=== PATIENT | female | born 1985 | race Caucasian/White ===

== ENCOUNTER → 2020-06-11 08:28 | Outpatient (BNVA) | payer BC, SELFPAY | PROVIDERS: Family Provider Registered Nurse; PCP Nurse Practitioner Family; Visit Provider Registered Nurse | DX: N92.6 Irregular menstruation, unspecified (principal); I10 Essential (primary) hypertension; R53.83 Other fatigue | CPT/HCPCS: 80053; 84439; 84443; 84480; 84702; 86376 ==

== ENCOUNTER → 2020-09-24 10:52 | Outpatient (BNVA) | payer SELFPAY | PROVIDERS: Family Provider Registered Nurse; PCP Nurse Practitioner Family; Visit Provider Registered Nurse | DX: N92.6 Irregular menstruation, unspecified (principal) | CPT/HCPCS: 84702 ==

== ENCOUNTER → 2021-03-11 10:54 | Outpatient (BNVA) | payer SELFPAY | PROVIDERS: Family Provider Registered Nurse; PCP Nurse Practitioner Family; Visit Provider Registered Nurse | DX: N92.6 Irregular menstruation, unspecified (principal) | CPT/HCPCS: 82607; 85025 ==

== ENCOUNTER → 2021-03-21 14:26 | Outpatient (BNVA) | payer BC, SELFPAY | PROVIDERS: Family Provider Registered Nurse; PCP Nurse Practitioner Family; Visit Provider Obstetrics & Gynecology | DX: N93.9 Abnormal uterine and vaginal bleeding, unspecified (principal) | CPT/HCPCS: 83001; 84443; 84702; 85025 ==

== ENCOUNTER → 2021-03-28 10:32 | Outpatient (BNVA) | payer BC, SELFPAY | PROVIDERS: Family Provider Registered Nurse; PCP Nurse Practitioner Family; Visit Provider Registered Nurse | DX: Z20.822 Contact with and (suspected) exposure to COVID-19 (principal); N92.1 Excessive and frequent menstruation with irregular cycle | CPT/HCPCS: 81000; 87635 ==

== ENCOUNTER 2021-04-04 09:41 | Emergency (ER) | payer BC, SELFPAY ==
[2021-04-04] VITALS (8 sets, daily range): BP systolic 88–111; BP diastolic 56–71; PULSE 78–89; RESP 18–20; TEMP 37.2–37.5; O2SAT 91–93; BMI 29.0
--- NOTE | 2021-04-04 10:52 | CT_ITS ---
WS: [id number] CT kidney stone [id number] REASON FOR EXAM: right flank pain, hx of stones, covid +, ovarian cyst IV CONTRAST ADMINISTERED: Noncontrast TOTAL EXAM DLP: 1775.[address] scans at [facility] use at least one of these dose optimization techniques: automat ed exposure control; mA and/or kV adjustment per patient size (includes targeted exams where dose is matched to clinical indication); or iterative reconstruction. FINDINGS: ABDOMEN: There is extensive consolidation in the lung bases. The liver appears fatty infiltrated. The gallbladder has been surgically removed. The pancreas and sp farrah are unremarkable. The adrenals are unremarkable. The kidneys are of normal size and contour and without mass. 2 mm calculus in the mid left kidney. No calculi overlying the abdominal portion of the ureters. No abdominal mass, adenopathy, focal fluid collection, or free fluid. No bowel abnormality. Pelvis: No calculus overlying the pelvic ureters. No calculus identified within the urinary bladder. 8.3 x 5.8 cm right ovarian cyst. There is an additional 3.7 cm in diameter mass in the right ovary an d 2 cm mass in the left ovary that are more complex in character. No other mass, adenopathy, focal fluid collection, or free fluid noted. The bony pelvis and lumbar sp ine are unremarkable. CT/CT kidney stone [id number] IMPRESSION: Consolidative changes in the lung bases. Solitary 2 mm calculus in the left kidney. Large right ovarian cyst. Likely involuting follicular cysts in the right kidney and left kidney. After p atient recovery, follow-up ultrasound would be reasonable.
--- NOTE | 2021-04-04 10:53 | W.ED.COVID ---
HPI - COVID General: Chief Complaint: COVID symptoms Stated Complaint: SOB, Covid + Time Seen by Provider: 04/04/21 10:46 Triage information: Has fever, cough or shortness of breath. Exposure to COVID + person last 14 days History of Present Illness: HPI Narrative: Patient Covid positive patient. Does have aches and pains all over. Complains about right flank pain burning with urination. History also ovarian cyst. Pain started last night. Did have some urinary symptoms last week UA was negative at office MD complaint: known COVID positive Prior covid testing: yes, results known Prior testing date: 03/28/21 COVID 19 common symptoms: positive fever(s), non-productive cough, dyspnea, body aches, headache(s) and nausea; negative throat pain or nasal congestion COVID 19 other sytmptoms: negative chest pain Severity: mild COVID Results: SARS-CoV-2 RNA (RT-PCR) Detected (NOT DETECTED) A 03/28/21 10:32 03/28/21 Review of Systems Const: Reports: fever(s) and body aches Eyes: Denies: change in vision or blurry vision ENMT: Denies: throat pain or nasal congestion Card: Denies: chest pain or dyspnea on exertion Resp: Reports: dyspnea and non-productive cough GI: Reports: nausea : Reports: flank pain, difficulty voiding, dysuria and urinary frequency Musc: Denies: extremity pain Skin/Breast: Denies: rash Neuro: Reports: headache(s) Psych: Denies: anxiety or depression Jose J/Lymph: Denies: easy bruising PFSH ED PFSH: Medical History (Updated 03/28/21 @ 11:00 by VICKIE Crum) Essential hypertension Missed period Family History (Updated 03/21/21 @ 13:33 by Elizabeth Varma RN) Mother Anesthesia complication Father Diabetes Grandmother Stroke maternal Denies family history of Colon cancer Ovarian cancer Clotting disorder Heart disease Hyperlipidemia Breast cancer Bleeding disorder Hypertension Uterine cancer Thyroid condition Social History (Updated 03/21/21 @ 13:33 by Elizabeth Varma RN) Smoking and tobacco status: never smoked Alcohol intake: current Alcohol intake frequency: holidays/special occasions only Alcohol type: wine and hard liquor Physical Exam Const: COMMON NORMALS: no acute distress, average body habitus and patient oriented x3 HENMT: COMMON NORMALS: normocephalic HEAD & SCALP: normal to inspection and normocephalic FACE & SINUS: normal facial exam Eye: COMMON NORMALS: conjunctivae normal GENERAL EYE: appearance normal, both eyes and all related structures CONJUNCTIVA: Yes conjunctivae normal Neck/C-Spine: COMMON NORMALS: no JVD Chest: COMMONS NORMALS: normal inspection of the chest Resp: COMMON NORMALS: normal respiratory effort and clear to auscultation bilaterally AUSCULTATION: clear to auscultation bilaterally Cardio: COMMON NORMALS: no JVD, regular rate and regular rhythm RATE: regular rate RHYTHM: regular rhythm GI: AUSCULTATION: Yes normoactive bowel sounds PALPATION: Yes Tenderness to palpation present (GI) Details: RLQ Extremity: COMMON NORMALS: normal to inspection and full ROM Neuro: COMMON NORMALS: patient oriented x3 Course Vital Signs: Vital signs: Vital Signs Temperature 99.5 F 04/04/21 09:48 Pulse Rate 78 04/04/21 10:11 Respiratory Rate 20 H 04/04/21 10:11 Blood Pressure 88/56 04/04/21 10:11 Pulse Oximetry 93 04/04/21 10:11 MDM - COVID COVID Results: SARS-CoV-2 RNA (RT-PCR) Detected (NOT DETECTED) A 03/28/21 10:32 03/28/21 Discharge Plan Discharge Prescriptions: No Action escitalopram oxalate 5 mg tablet See Rx Instructions .ROUTE .COMPLEX Qty: 90 RF: 0 cetirizine 10 mg tablet 10 mg PO DAILY PRNRF: 0 metoprolol tartrate 25 mg tablet 25 mg PO DAILY Qty: 90 RF: 3 metoprolol ta-hydrochlorothiaz 50-25 mg tablet 1 tab PO DAILY Qty: 90 RF: 3 montelukast 10 mg tablet See Rx Instructions .ROUTE .COMPLEX Qty: 90 RF: 0 Contrave 8-90 mg tablet extended release See Rx Instructions .ROUTE .COMPLEX Qty: 120 RF: 0 fluticasone propion-salmeterol [Advair Diskus] 250-50 mcg/dose blister with device See Rx Instructions .ROUTE .COMPLEX Qty: 60 RF: 0 ibuprofen 800 mg tablet 800 mg PO TID Qty: 90 RF: 0 promethazine 12.5 mg tablet 12.5 mg PO BID PRN (Reason: nausea and vomiting) Qty: 14 RF: 0 Coding Level of Care Code ED Communications Program Manager for [facility] Gallegos
[2021-04-04] MEDS: morphine 4 mg/mL SDV 1 mL IVP (11:37)
[2021-04-04] MEDS: sodium chloride 0.9% 1,000 ML 999 ML IV (11:38)
[2021-04-04] MEDS: ondansetron 2 mg/ML SDV 2 mL 4 MG IVP (11:39)
[2021-04-04 12:09] LABS: Protein Urine 1+ (Negative); Urine Appearance SL Hazy (CLEAR); Urine Color Amber (Yellow); pH Urine 6 (5-7)
[2021-04-04 12:10] LABS: Add Urine Microscopic? YES; Bilirubin Urine 1+ (Negative); Blood Urine 3+ (Negative); Glucose Urine UA Norm (Normal); Ketones Urine 1+ (Negative); Leukocyte Esterase Urine 1+ (Negative); Nitrate Urine Negative (Negative); Urobilinogen Urine 4 mg/dL (Negative)
[2021-04-04 12:11] LABS: Bacteria Urine 1+ /hpf; Mucus Urine 2+ /hpf; RBC Urine 40-50 /hpf (0-2); WBC Urine 25-40 /hpf (0-5)
[2021-04-04 12:12] LABS: Add Urine Culture? Yes; HCG Qualitative Urine. Negative (Negative)
== END 2021-04-04 14:35 | disposition home or self-care (01) ==
PROVIDERS: Emergency Provider Nurse Practitioner Family; PCP Nurse Practitioner Family
DX: U07.1 COVID-19 (principal)
CPT/HCPCS: 74176; 81001; 81025; 87086; 96361; 96374; 96375; 99284; J2270; J2405; J7030

== ENCOUNTER 2021-04-04 22:58 | Inpatient (IN) | payer BC, SELFPAY ==
--- NOTE | 2021-04-04 23:15 | XRR_ITS ---
PROCEDURE INFORMATION: Exam: XR Chest Exam date and time: 04/04/2021 11:15 PM Age: 35 years old Clinical indication: Dyspnea; Additional info: SOB TECHNIQUE: Imaging protocol: XR of the chest. Views: 1 view. COMPARISON: CT kidney stone [id number] 04/04/2021 12:19 PM FINDINGS: Lungs: Bilateral ground-glass opacities which may be secondary to pneumonia or COVID-19. Pleural spaces: Unremarkable. No pleural effusion. No pneumothorax. Heart/Mediastinum: Unremarkable. No cardiomegaly. Bones/joints: Unremarkable. XR/XR chest 1V portable [id number] IMPRESSION: Bilateral ground-glass opacities which may be secondary to pneumonia or COVID-19.
[2021-04-04 23:21] VITALS: BP 106/71; PULSE 107; RESP 24; TEMP 37.4; O2SAT 82; BMI 29.0
[2021-04-05] VITALS (24 sets, daily range): BP systolic 85–124; BP diastolic 53–77; PULSE 53–95; RESP 12–26; TEMP 36.4–37.3; O2SAT 92–98
--- NOTE | 2021-04-05 00:53 | ED_ITS ---
HPI - COVID General: Chief Complaint: Shortness of Breath/Dyspnea Stated Complaint: COVID + 03/28/21 Time Seen by Provider: 04/04/21 23:59 Triage information: Has fever, cough or shortness of breath . Exposure to COVID + person last 14 days History of Present Illness: MD complaint: known COVID positive Prior covid testing: yes, results known Prior testing date: 03/28/21 COVID 19 common symptoms: positive fever(s), chills, cough, non-productive cough, dyspnea, fatigue, body aches, headache(s), loss of sense of smell and/or taste, throat pain, nasal congestion, nausea and diarrhea; negative vomiting COVID 19 other sytmptoms: positive requiring oxygen; negative chest pain Onset (ago): day(s) (8) Severity: severe Pertinent comorbid conditions: COPD/respiratory disease and obesity Treatment prior to arrival: none COVID Results: SARS-CoV-2 RNA (RT-PCR) Detected (NOT DETECTED) A 03/28/21 10:32 03/28/21 Review of Systems Const: Reports: fever(s), chills, body aches and fatigue ENMT: Reports: throat pain and nasal congestion Card: Denies: chest pain, edema, dyspnea on exertion or orthopnea Resp: Reports: dyspnea and non-productive cough GI: Reports: nausea and diarrhea; Denies: vomiting : Denies: flank pain, difficulty voiding, dysuria, urinary frequency or urinary urgency Skin/Breast: Denies: rash or pruritus Neuro: Reports: headache(s) [facility] ED PFSH: Medical History (Updated 04/10/21 @ 14:07 by Neal Hester DO) Asthma Essential hypertension Missed period Family History Mother Anesthesia complication Father Diabetes Grandmother Stroke maternal Denies family history of Colon cancer Ovarian cancer Clotting disorder Heart disease Hyperlipidemia Breast cancer Bleeding disorder Hypertension Uterine cancer Thyroid condition Social History Smoking and tobacco status: never smoked Alcohol intake: current Alcohol intake frequency: holidays/special occasions only Alcohol type: wine and hard liquor Physical Exam Const: COMMON NORMALS: no acute distress GENERAL APPEARANCE: cooperative and comfortable ORIENTATION/CONSCIOUSNESS: Yes awake, Yes oriented to person, Yes oriented to place and Yes oriented to time HENMT: COMMON NORMALS: normocephalic, atraumatic and hearing grossly normal bilaterally HEAD & SCALP: normocephalic and atraumatic Neck/C-Spine: COMMON NORMALS: no JVD Resp: COMMON NORMALS: normal respiratory effort, No retractions, No use of accessory muscles and clear to auscultation bilaterally AUSCULTATION: clear to auscultation bilaterally Cardio: COMMON NORMALS: no JVD, regular rate, regular rhythm and No murmurs present (Cardio) RATE: regular rate RHYTHM: regular rhythm GI: COMMON NORMALS: Soft to palpation and No hepatosplenomegaly present AUSCULTATION: Yes normoactive bowel sounds PALPATION: Yes Soft to palpation, No Tenderness to palpation present (GI), No Guarding due to palpation present (GI) and Yes No hepatosplenomegaly present Extremity: COMMON NORMALS: normal to inspection, capillary refill normal, no clubbing, cyanosis or edema, no calf tenderness and no pedal edema Neuro: SENSORIUM/ORIENTATION: Yes oriented to person, Yes oriented to place and Yes oriented to time Skin: COMMON NORMALS: no rashes or lesions noted GENERAL SKIN EXAM: no rashes or lesions noted Course Vital Signs: Vital signs: Vital Signs Temperature 98.8 F 04/08/21 11:04 Pulse Rate 87 04/08/21 13:10 Respiratory Rate 16 04/08/21 11:45 Blood Pressure 170/80 04/08/21 11:04 Pulse Oximetry 92 04/08/21 13:10 MDM - COVID MDM Narrative: Medical decision making narrative: 19 pneumonitis will admit d iscussed with hospitalist orders written Lab Data: Labs: Lab Results 04/05/21 04/05/21 04/05/21 Range/Units 00:45 00:45 00:45 WBC 4.3 (4.0-10.0) 10^3/ uL RBC 4.53 (4.1-5.3) 10^6/u L Hgb 13.3 (11.5-15.3) g/dL Hct 41.5 (37.0-47.0) % MCV 91.6 (81-99) fL MCH 29.4 (28.0-34.0) pg MCHC 32.0 (30.0-36.0) g/dL RDW 13.6 (12.1-15.1) % Plt Count 82 L (130-400) 10^3/c mm MPV 13.2 H (7.4-10.4) fL Neut % (Auto) 60.8 % Lymph % (Auto) 31.2 % Warrick % (Auto) 6.6 % Eos % (Auto) 0.0 % Baso % (Auto) 0.2 % Neut # (Auto) 2.59 (1.8-7.7) 10^3/u L Lymph # (Auto) 1.3 (0.8-4.8) 10^3/u L Warrick # (Auto) 0.3 (0.2-0.9) 10^3/u L Eos # (Auto) 0.0 (0.0-0.8) 10^3/u L Baso # (Auto) 0.0 (0.0-0.1) 10^3/u L Nucleated RBC % (a uto) 0 % Nucleated RBCs # 0.0 /100WBC D-Dimer <= 0.27 (0-0.59) ug/mIFE U Specimen Type Sample Site ABG pH (7.35-7.45) ABG pCO2 (35-45) mmHg ABG pO2 (80.0-100.0) mmH g ABG HCO3 (22-26) mmol/L ABG O2 Saturation ABG Base Excess (-2.0-2.0) mmol/ L Khoa Test A-a O2 Gradient Hematocrit (37-47) % Hgb O2 Saturation (95-100) % Carboxyhemoglobin (0.4-20.1) %THgb Methemoglobin (0.4-1.5) % Total Hemoglobin (12-16) g/dL Ionized Calcium (1.1-1.4) mmol/L O2 Delivery Device O2 Liters/Min % Residential Real Estate Appraiser ID Sodium 140 (136-145) mmol/L Potassium 3.1 L (3.5-5.1) mmol/L Chloride 102 (98-107) mmol/L Carbon Dioxide 25 (22-29) mmol/L Anion Gap 16.1 (5-19) BUN 11 (6-20) mg/dL Creatinine 0.8 (0.5-0.9) mg/dL GFR Calculation 82.6 L (90-130) mL/min Glucose 91 (65-115) mg/dL Calculated Osmolal ity 289 (285-295) mOsm/k g Calcium 7.7 L (8.5-10.5) mg/dL Total Bilirubin 0.8 (0.15-1.2) mg/dL AST 41 H (0-32) U/L ALT 34 H (0-33) U/L Alkaline Phosphata se 61 (35-105) IU/L C-Reactive Protein 54.1 H (0.0-4.9) mg/L Total Protein 6.5 L (6.6-8.7) g/dL Albumin 3.7 (3.5-5.2) g/dL Globulin 2.8 (1.3-4.6) g/dL Procalcitonin 0.07 (0-0.5) ng/mL 04/05/21 Range/Units 00:51 WBC (4.0-10.0) 10^3/ uL RBC (4.1-5.3) 10^6/u L Hgb (11.5-15.3) g/dL Hct (37.0-47.0) % MCV (81-99) fL MCH (28.0-34.0) pg MCHC (30.0-36.0) g/dL RDW (12.1-15.1) % Plt Count (130-400) 10^3/c mm MPV (7.4-10.4) fL Neut % (Auto) % Lymph % (Auto) % Warrick % (Auto) % Eos % (Auto) % Baso % (Auto) % Neut # (Auto) (1.8-7.7) 10^3/u L Lymph # (Auto) (0.8-4.8) 10^3/u L Warrick # (Auto) (0.2-0.9) 10^3/u L Eos # (Auto) (0.0-0.8) 10^3/u L Baso # (Auto) (0.0-0.1) 10^3/u L Nucleated RBC % (a uto) % Nucleated RBCs # /100WBC D-Dimer (0-0.59) ug/mIFE U Specimen Type Arterial Sample Site Radial,left ABG pH 7.39 (7.35-7.45) ABG pCO2 44.8 (35-45) mmHg ABG pO2 93.5 (80.0-100.0) mmH g ABG HCO3 27.1 H (22-26) mmol/L ABG O2 Saturation 97.6 ABG Base Excess 1.7 (-2.0-2.0) mmol/ L Khoa Test Pos A-a O2 Gradient Not Reportable Hematocrit 41.4 (37-47) % Hgb O2 Saturation 96.8 (95-100) % Carboxyhemoglobin 0.5 (0.4-20.1) %THgb Methemoglobin 0.2 L (0.4-1.5) % Total Hemoglobin 13.5 (12-16) g/dL Ionized Calcium 1.1 (1.1-1.4) mmol/L O2 Delivery Device Nrb O2 Liters/Min 15.0 % Residential Real Estate Appraiser ID Monro Sodium 143.0 (136-145) mmol/L Potassium 2.9 L (3.5-5.1) mmol/L Chloride (98-107) mmol/L Carbon Dioxide (22-29) mmol/L Anion Gap (5-19) BUN (6-20) mg/dL Creatinine (0.5-0.9) mg/dL GFR Calculation (90-130) mL/min Glucose 97.0 (65-115) mg/dL Calculated Osmolal ity (285-295) mOsm/k g Calcium (8.5-10.5) mg/dL Total Bilirubin (0.15-1.2) mg/dL AST (0-32) U/L ALT (0-33) U/L Alkaline Phosphata se (35-105) IU/L C-Reactive Protein (0.0-4.9) mg/L Total Protein (6.6-8.7) g/dL Albumin (3.5-5.2) g/dL Globulin (1.3-4.6) g/dL Procalcitonin (0-0.5) ng/mL COVID Results: SARS-CoV-2 RNA (RT-PCR) Detected (NOT DETECTED) A 03/28/21 10:32 03/28/21 Discharge Plan Discharge Patient Disposition: Admitted As Inpatient Admit Provider: Lori Majano Clinical Impression: Pneumonia due to COVID-19 virus, Essential hypertension, Asthma Condition: Stable Discharge Diet: Regular Discharge Activity: Increase activity as tolerated Coding Level of Care Code ED Sheet Metal Layout Mechanic for [facility] Fwd Exam Comprehensive
[2021-04-05 00:57] LABS: Basophils % 0.2 %; Hematocrit 41.5 % (37.0-47.0); Hemoglobin 13.3 g/dL (11.5-15.3); Lymphocytes # 1.3 10^3/uL (0.8-4.8); Lymphocytes % 31.2 %; Mean Corpuscular Hemoglobin 29.4 pg (28.0-34.0); Mean Corpuscular Volume 91.6 fL (81-99); Mean Platelet Volume 13.2 fL (7.4-10.4); Monocytes # 0.3 10^3/uL (0.2-0.9); Monocytes % 6.6 %; Neutrophils # 2.59 10^3/uL (1.8-7.7); Neutrophils % 60.8 %; Nucleated Red Blood Cells % 0 %; Platelet Count 82 10^3/cmm (130-400); Red Blood Count 4.53 10^6/uL (4.1-5.3); Red Cell Distribution Width 13.6 % (12.1-15.1); White Blood Count 4.3 10^3/uL (4.0-10.0)
[2021-04-05 01:04] LABS: D Dimer <= 0.27 ug/mIFEU (0-0.59)
[2021-04-05 01:11] LABS: Alanine Aminotransferase 34 U/L (0-33); Albumin Level 3.7 g/dL (3.5-5.2); Alkaline Phosphatase 61 IU/L (35-105); Anion Gap 16.1 (5-19); Aspartate Amino Transferase 41 U/L (0-32); Blood Urea Nitrogen 11 mg/dL (6-20); C Reactive Protein 54.1 mg/L (0.0-4.9); Calcium 7.7 mg/dL (8.5-10.5); Carbon Dioxide 25 mmol/L (22-29); Chloride 102 mmol/L (98-107); Globulin 2.8 g/dL (1.3-4.6); Glomerular Filtration Rate 82.6 mL/min (90-130); Glucose 91 mg/dL (65-115); Osmolality Calculated 289 mOsm/kg (285-295); Potassium 3.1 mmol/L (3.5-5.1); Sodium 140 mmol/L (136-145); Total Bilirubin 0.8 mg/dL (0.15-1.2); Total Protein 6.5 g/dL (6.6-8.7)
[2021-04-05 01:14] LABS: Slide Review Slide Review Perform
[2021-04-05 01:16] LABS: Procalcitonin 0.07 ng/mL (0-0.5)
[2021-04-05] MEDS: promethazine 25 mg/mL SDV 1 mL IM (01:22)
[2021-04-05] MEDS: dexamethasone 4 mg/mL INJ 6 MG IVP (01:39)
[2021-04-05] MEDS: remdesivir 200 MG in sodium chloride 0.9% (100 ml) 100 ML 100 MG IV (01:39)
--- NOTE | 2021-04-05 04:06 | PC.NURSE ---
Unable to obtain med rec at this time. Patient states that she does not have a list of her home medications with her and she does not know them. Patient gave me the name of her pharmacy, which has been put in her chart.
--- NOTE | 2021-04-05 04:22 | PM.HP ---
Providers/Chief Complaint Admitting Physician: Lori Majano MD Primary Care Provider: Hernandez Aguilar Chief Complaint: COVID + 03/28/21 History of Present Illness Manuela Mccrary is a 35 year old female with past medical history of hypertension, asthma, recurrent UTI, unvaccinated for Covid, presents today 1 week after being diagnosed with COVID-19 as an outpatient with shortness of breath. She was hypoxic in the low 80s, initially started on 15 L/min via nonrebreather mask, quickly escalated to heated high flow at the time of examination. Complains of cough, body ache, chills. Review of Systems General: Reports: 10 or more systems reviewed and unremarkable except in HPI and below Const: Reports: fever(s), chills and body aches Eyes: Denies: change in vision, blurry vision or photophobia ENMT: Reports: hoarseness; Denies: throat pain, enlarged tonsils, odynophagia or nasal congestion Card: Denies: chest pain, palpitations, irregular heart rhythm, edema, swelling of feet/ankles, lightheadedness, pre-syncope, dyspnea on exertion or orthopnea Resp: Denies: dyspnea, productive cough, non-productive cough, wheezing, stridor, pain on inspiration, change in phlegm color, hemoptysis or chest congestion GI: Denies: abdominal pain, nausea, vomiting, hematemesis, coffee ground emesis, dysphagia, heartburn, diarrhea, constipation, GI cramping, change in stool character, hematochezia or melena : Denies: flank pain, difficulty voiding, dysuria, urinary frequency, urinary urgency, urinary hesitancy or hematuria Musc: Denies: neck pain, back pain, extremity pain, joint swelling, joint warmth or deformity Neuro: Denies: headache(s), numbness in extremities, weakness in extremities, sensory changes, difficulty walking, frequent falls, dizziness, vertigo, behavioral changes, Slurred speech present or seizure-like activity Psych: Denies: anxiety, depression, suicidal ideation or homicidal ideation Endo: Denies: polyuria, polydipsia, tired all the time, cold intolerance or hot flashes Jose J/Lymph: Denies: easy bruising or easy bleeding Medications/Allergies Home Medications Medication Instructions Recorded Confirmed Last Taken Type cetirizine 10 mg tablet 10 mg PO DAILY 03/21/21 04/04/21 Unknown History promethazine 12.5 mg tablet 12.5 mg PO BID PRN #14 tab 04/02/21 04/04/21 04/04/21 07:30 Rx THREW UP AFTER TAKIN Advair Diskus 1 inh INHALATION BID 04/04/21 04/04/21 04/03/21 History Elderberry Gummies 1 tab PO DAILY 04/04/21 04/04/21 Unknown History Vitamin C 1 tab PO DAILY 04/04/21 04/04/21 Unknown History Vitamin D3 1 cap PO DAILY 04/04/21 04/04/21 Unknown History dexamethasone 4 mg PO DAILY 04/04/21 04/04/21 04/03/21 History TOOK LAST DOSE escitalopram oxalate 5 mg PO QAM 04/04/21 04/04/21 04/03/21 History ibuprofen 800 mg PO TID PRN 04/04/21 04/04/21 04/04/21 History THREW UP AFTER TAKIN metoprolol ta-hydrochlorothiaz 1 tab PO QPM 04/04/21 04/04/21 04/03/21 History metoprolol tartrate 25 mg PO QAM 04/04/21 04/04/21 04/03/21 History montelukast 10 mg PO BEDTIME 04/04/21 04/04/21 04/03/21 History naltrexone-bupropion [Contrave] 1 tab PO BID 04/04/21 04/04/21 Unknown History nitrofurantoin monohyd/m-cryst 100 mg PO BID 5 Days #10 cap 04/04/21 Unknown Rx [Macrobid] ondansetron HCl [Zofran] 4 mg PO Q8H 3 Days #9 tab 04/04/21 Unknown Rx potassium gluconate 595 mg PO BEDTIME 04/04/21 04/04/21 04/03/21 History tramadol 50 mg PO TID PRN #7 tab 04/04/21 Unknown Rx zinc 1 tab PO DAILY 04/04/21 04/04/21 Unknown History Allergies Allergy/AdvReac Type Severity Reaction Status Date / Time hydrocodone [From Vicodin] Allergy Severe itching Verified 04/04/21 13:32 latex Allergy Severe rash, Verified 04/04/21 13:32 swelling Penicillins Allergy Severe makes her Verified 04/04/21 13:32 feel crazy tramadol Allergy Severe itching Verified 04/04/21 13:32 naproxen [From Aleve] Allergy Intermediate rash, Verified 04/04/21 13:32 itching, heartburn pamabrom [From Midol] Allergy Intermediate vomiting Verified 04/04/21 13:32 PFSH Acute PFSH: Medical History (Updated 04/05/21 @ 04:27 by Lori Majano MD) Asthma Essential hypertension Missed period Family History Mother Anesthesia complication Father Diabetes Grandmother Stroke maternal Denies family history of Colon cancer Ovarian cancer Clotting disorder Heart disease Hyperlipidemia Breast cancer Bleeding disorder Hypertension Uterine cancer Thyroid condition Social History Smoking and tobacco status: never smoked Alcohol intake: current Alcohol intake frequency: holidays/special occasions only Alcohol type: wine and hard liquor Female Reproductive History: Date of last menstrual period: 04/05/21 Vitals/I&O/Wt Last Vital Signs Temp 99.2 F 04/05/21 04:00 Pulse 81 04/05/21 01:59 Resp 16 04/05/21 01:59 BP 85/53 04/05/21 01:59 Pulse Ox 95 04/05/21 01:59 04/04/21 04/04/21 04/05/21 14:59 22:59 06:59 Intake Total 100 / 100 Balance 100 / 100 Weight last 48 hrs Weight 81.647 kg Physical Exam Narrative: EXAM NARRATIVE: General: No acute distress while on heated high flow, AO x3 HEENT: PERRLA, pupils bilaterally equal and reactive, pallors not present Chest: Bilateral wheezing on auscultation CVS: S1-S2 regular, no murmurs, no tachycardia, no gallops, no rubs Abdomen: Soft, nontender, no organomegaly, bowel sounds present Neuro: No focal deficits, no facial deformity, AO x3, power 5/5 in all limbs Extremities: No cyanosis clubbing edema. Data : 04/05/21 00:45 04/05/21 00:45 A&P Assessment and plan (1) COVID-19: Admit to [facility] Remdisivir 200mg iv x 1 followed by 100mg iv daily dexamethasone 6mg IVP daily duoneb q6h, budesonide q12h empiric levofloxacin, pro-Moses negative Flutter valve/spirometer at bedside trend inflammatory markers including CRP, LDH, D dimer, Ferritin D-dimer negative Chest x-ray with bilateral infiltrates consistent with Covid Supplemental O2 to keep saturation greater than 92% Status: Acute (2) Thrombocytopenia: Likely related to acute viral illness, monitor closely while on Lovenox prophylaxis Status: Acute Additional A&P Information DVT prophylaxis Lovenox Full code Attestations Medical Necessity Statement*: Greater than 2 midnight admission anticipated for management of COVID-19 pneumonia with acute hypoxic respiratory failure Coding Level of Care Code Acute Clothespin Drier Operator for [facility] Fw Diagnoses COVID-19 U07.1 Thrombocytopenia D69.6
[2021-04-05] MEDS: enoxaparin 40 mg/0.4 mL Syringe SUBCUT (04:28)
[2021-04-05 05:33] LABS: ABG PCO2 44.8 mmHg (35-45); ABG PH Result 7.39 (7.35-7.45); Base Excess ABG 1.7 mmol/L (-2.0-2.0); Blood Gas Allen Test POS; Blood Gas Operator Identificat MONRO; Blood Gas Sample Type ARTERIAL; HCO3 ABG 27.1 mmol/L (22-26); Oxygen Device NRB; Oxygen Saturation ABG 97.6; PO2 ABG 93.5 mmHg (80.0-100.0); Potassium Level - ABG 2.9 mmol/L (3.5-5.0)
[2021-04-05 05:34] LABS: Arterial Blood Gas Hematocrit 41.4 % (37-47); Carboxyhemoglobin 0.5 %THgb (0.4-20.1); HGB O2 Sat 96.8 % (95-100); Ionized Calcium Level - ABG 1.1 mmol/L (1.1-1.4); Methemoglobin 0.2 % (0.4-1.5); Total Hemoglobin 13.5 g/dL (12-16)
[2021-04-05] MEDS: levoFLOXacin 750 mg Tablet PO (05:43)
--- NOTE | 2021-04-05 07:57 | PC.NURSE ---
Pt presents lying in bed resting and talking to staff. Pt had no c/o pain or discomfort at the present time. No needs voiced. Call light in reach.
[2021-04-05] MEDS: pantoprazole DR 40 mg Tablet PO (08:35)
[2021-04-05] MEDS: ipratropium-albuterol 3 mL Neb INHALATION ×4 (08:49→19:36)
[2021-04-05] MEDS: budesonide 0.5 mg/2 mL Neb INHALATION ×2 (08:49→19:36)
--- NOTE | 2021-04-05 09:50 | PC.CHAP ---
Pastoral Care Encounter/Spiritual Assessment Type of Contact [] Declined car rental agent visit [] Patient/Family/Request visit [] Outpatient visit [] Follow-up visit [] Physician referral [] Code/Alert [x] Routine visit [] Staff referral [] Actively dying [] Patient sleeping [] Family support [] [] Out of room [] Palliative care [] [] Receiving care in room [] Pre-surgical visit [] Trauma [] Long length of stay [] ICU visit [x] Other: isolated Relational/Emotional Strength [] Patient feels connected with others/family/visitors/staff [] Distress [] Loneliness/isolation [] Abandonment Spirituality of Patient [] Person of Soco [] Attends Druze of their Soco [] Believes in Prayer [] Reads Bible or Adventism materials [] There are Spiritual issues to be addressed Dynamite Reclaimer Interventions [x] Prayer [] Active listening [] Non-anxious presence [] Spiritual/emotional support [] Crisis/trauma care [] Spiritual counseling [] Bereavement support [] Provided bereavement packet [] Provided Bible/devotional materials [] Provided toy/stuffed animal, coloring book to patient or family member [] Provided Communion [] Anointing/[place] [] Salvation [x] Completed spiritual assessment [] Other: Impact on Illness or Injury [] Angry [] Fearful [] Anxious [] Often cries [] Exhaustion [] Unable to work [] Unable to attend episcopal [] Unable to walk/stand [] Unable to read [] Unable to drive [] Unable to eat/drink [] Unable to sleep [] Unable to be with family [] Patient intubated [] Other: Summary Time spent with patient
[2021-04-05] MEDS: potassium chloride ER 20 mEq Tablet 40 MEQ PO (10:16)
[2021-04-05] MEDS: oxyCODONE 5 mg IR Tab/Cap PO ×2 (10:43→20:03)
--- NOTE | 2021-04-05 13:36 | PM.PN ---
Subjective Subjective: Interval history: History and physical reviewed in detail. Patient reports significant severe shortness of breath persists. About the same as yesterday. Oxygen does help. No nausea or vomiting. Medications: Reviewed: Yes Vitals/I&O/Wt Last Vital Signs Temp 97.8 F 04/05/21 08:00 Pulse 86 04/05/21 09:30 Resp 18 04/05/21 10:43 BP 114/72 04/05/21 08:00 Pulse Ox 93 04/05/21 09:30 04/04/21 04/05/21 04/05/21 22:59 06:59 14:59 Intake Total 600 / 600 120 / 120 Balance 600 / 600 120 / 120 Weight last 48 hrs Weight 81.647 kg Physical Exam Narrative: EXAM NARRATIVE: General exam moderate tachypnea with respiratory distress Neck is supple no lymphadenopathy or thyromegaly Cardiovascular regular rate and rhythm without murmur Lungs a few crackles bilaterally Abdomen is soft with positive bowel sounds Extremities no cyanosis clubbing or edema Data : 04/05/21 00:45 04/05/21 00:45 A&P Assessment and plan (1) Pneumonia due to COVID-19 virus: Severe COVID-19 pneumonia Remdesivir Dexamethasone Repeat inflammatory markers tomorrow Secondary to severity of illness requiring high flow oxygen Tocilizumab to be given today Incentive spirometry Empiric Levaquin. Procalcitonin was negative Nebulized treatments, budesonide Status: Acute (2) Asthma: No current evidence of exacerbation Status: Acute (3) Essential hypertension: Blood pressure controlled currently Status: Acute Additional A&P Information Thrombocytopenia. Likely secondary to viral illness. Continue to monitor Hypokalemia. Supplemented Full code Lovenox for DVT prophylaxis Attestations Medical Necessity Statement*: Needs continued hospitalization for high flow oxygen secondary to COVID-19 pneumonia. 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
[2021-04-05] MEDS: ondansetron 2 mg/ML SDV 2 mL 4 MG IVP (17:52)
[2021-04-05] MEDS: remdesivir 100 MG in sodium chloride 0.9% (100 ml) 100 ML IV (17:53)
[2021-04-06] VITALS (20 sets, daily range): BP systolic 101–134; BP diastolic 68–88; PULSE 66–91; RESP 16–26; TEMP 36.8–37.1; O2SAT 90–96
[2021-04-06] MEDS: ipratropium-albuterol 3 mL Neb INHALATION ×7 (00:27→23:54)
[2021-04-06] MEDS: oxyCODONE 5 mg IR Tab/Cap PO ×2 (01:19→18:49)
[2021-04-06] MEDS: dexamethasone 4 mg/mL INJ 6 MG IVP (02:08)
[2021-04-06 04:20] LABS: Hematocrit 38.2 % (37.0-47.0); Hemoglobin 12.1 g/dL (11.5-15.3); Lymphocytes # 1.2 10^3/uL (0.8-4.8); Lymphocytes % 51.5 %; Mean Corpuscular HGB Conc 31.7 g/dL (30.0-36.0); Mean Corpuscular Hemoglobin 29.3 pg (28.0-34.0); Mean Corpuscular Volume 92.5 fL (81-99); Mean Platelet Volume 12.5 fL (7.4-10.4); Monocytes # 0.3 10^3/uL (0.2-0.9); Monocytes % 11.5 %; Neutrophils % 36.1 %; Nucleated Red Blood Cells % 0 %; Platelet Count 106 10^3/cmm (130-400); Red Blood Count 4.13 10^6/uL (4.1-5.3); Red Cell Distribution Width 13.4 % (12.1-15.1); White Blood Count 2.3 10^3/uL (4.0-10.0)
[2021-04-06 04:44] LABS: Alanine Aminotransferase 28 U/L (0-33); Albumin Level 3.3 g/dL (3.5-5.2); Alkaline Phosphatase 55 IU/L (35-105); Anion Gap 13.5 (5-19); Aspartate Amino Transferase 42 U/L (0-32); Blood Urea Nitrogen 13 mg/dL (6-20); Calcium 7.6 mg/dL (8.5-10.5); Carbon Dioxide 27 mmol/L (22-29); Chloride 103 mmol/L (98-107); Ferritin 157 ng/mL (15-150); Glomerular Filtration Rate 142.1 mL/min (90-130); Glucose 90 mg/dL (65-115); Lactate Dehydrogenase 213 U/L (135-214); Osmolality Calculated 290 mOsm/kg (285-295); Potassium 3.5 mmol/L (3.5-5.1); Sodium 140 mmol/L (136-145); Total Bilirubin 0.7 mg/dL (0.15-1.2); Total Protein 6.3 g/dL (6.6-8.7)
[2021-04-06 04:51] LABS: Neutrophils # 0.82 10^3/uL (1.8-7.7)
[2021-04-06] MEDS: levoFLOXacin 750 mg Tablet PO (05:18)
[2021-04-06] MEDS: enoxaparin 40 mg/0.4 mL Syringe SUBCUT (05:18)
[2021-04-06] MEDS: budesonide 0.5 mg/2 mL Neb INHALATION ×2 (08:38→20:12)
[2021-04-06] MEDS: pantoprazole DR 40 mg Tablet PO (08:54)
[2021-04-06] MEDS: potassium chloride ER 20 mEq Tablet 40 MEQ PO ×2 (09:29→14:36)
--- NOTE | 2021-04-06 13:28 | P.PN_ITS ---
Subjective Subjective: Interval history: Manuela reports she perhaps feels a little bit better. No chest discomfort. Medications: Reviewed: Yes Vitals/I&O/Wt Last Vital Signs Temp 98.3 F 04/06/21 08:00 Pulse 85 04/06/21 12:10 Resp 24 H 04/06/21 12:00 BP 105/68 04/06/21 08:00 Pulse Ox 92 04/06/21 12:00 04/05/21 04/06/21 04/06/21 22:59 06:59 14:59 Intake Total 420 / 1000 100 / 1100 240 / 240 Output Total 400 / 400 Balance 20 / 600 100 / 700 240 / 240 Weight last 48 hrs Weight 81.647 kg Physical Exam Narrative: EXAM NARRATIVE: General exam moderate tachypnea with respiratory distress Neck is supple no lymphadenopathy or thyromegaly Cardiovascular regular rate and rhythm without murmur Lungs a few crackles bilaterally Abdomen is soft with positive bowel sounds Extremities no cyanosis clubbing or edema Data : 04/06/21 03:11 04/06/21 03:11 A&P Assessment and plan (1) Pneumonia due to COVID-19 virus: Severe COVID-19 pneumonia Continue remdesivir, dexamethasone Tocilizumab was given 04/06 Incentive spirometry Empiric Levaquin. Procalcitonin was negative Nebulized treatments, budesonide CRP unchanged Status: Acute (2) Asthma: No current evidence of exacerbation Status: Acute (3) Essential hypertension: Blood pressure controlled currently Status: Acute Additional A&P Information Thrombocytopenia. Likely secondary to viral illness. Improving Hypokalemia. Supplemented and improved. Full code Lovenox for DVT prophylaxis Attestations Medical Necessity Statement*: Needs continued hospitalization for high flow oxygen secondary to severe COVID-19 pneumonia. 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
[2021-04-06] MEDS: remdesivir 100 MG in sodium chloride 0.9% (100 ml) 100 ML IV (18:28)
[2021-04-07] VITALS (18 sets, daily range): BP systolic 105–125; BP diastolic 71–82; PULSE 63–88; RESP 16–19; TEMP 36.4–36.8; O2SAT 90–98
[2021-04-07] MEDS: dexamethasone 4 mg/mL INJ 6 MG IVP (01:19)
[2021-04-07] MEDS: oxyCODONE 5 mg IR Tab/Cap PO ×2 (01:20→12:56)
[2021-04-07] MEDS: ipratropium-albuterol 3 mL Neb INHALATION ×6 (03:14→23:20)
[2021-04-07] MEDS: enoxaparin 40 mg/0.4 mL Syringe SUBCUT (05:03)
[2021-04-07] MEDS: levoFLOXacin 750 mg Tablet PO (05:03)
[2021-04-07 07:28] LABS: Hematocrit 40.5 % (37.0-47.0); Hemoglobin 12.7 g/dL (11.5-15.3); Lymphocytes # 0.8 10^3/uL (0.8-4.8); Lymphocytes % 33.8 %; Mean Corpuscular HGB Conc 31.4 g/dL (30.0-36.0); Mean Corpuscular Hemoglobin 29.1 pg (28.0-34.0); Mean Corpuscular Volume 92.9 fL (81-99); Mean Platelet Volume 12.6 fL (7.4-10.4); Monocytes # 0.2 10^3/uL (0.2-0.9); Monocytes % 10.1 %; Neutrophils # 1.24 10^3/uL (1.8-7.7); Neutrophils % 54.3 %; Nucleated Red Blood Cells % 0 %; Platelet Count 130 10^3/cmm (130-400); Red Blood Count 4.36 10^6/uL (4.1-5.3); Red Cell Distribution Width 13.2 % (12.1-15.1); White Blood Count 2.3 10^3/uL (4.0-10.0)
[2021-04-07] MEDS: budesonide 0.5 mg/2 mL Neb INHALATION ×2 (07:32→20:08)
[2021-04-07 07:57] LABS: Alanine Aminotransferase 49 U/L (0-33); Albumin Level 3.5 g/dL (3.5-5.2); Alkaline Phosphatase 56 IU/L (35-105); Anion Gap 13.6 (5-19); Aspartate Amino Transferase 70 U/L (0-32); Blood Urea Nitrogen 13 mg/dL (6-20); Calcium 8.1 mg/dL (8.5-10.5); Carbon Dioxide 27 mmol/L (22-29); Chloride 106 mmol/L (98-107); Glomerular Filtration Rate 142.1 mL/min (90-130); Glucose 136 mg/dL (65-115); Osmolality Calculated 296 mOsm/kg (285-295); Potassium 4.6 mmol/L (3.5-5.1); Sodium 142 mmol/L (136-145); Total Bilirubin 0.7 mg/dL (0.15-1.2); Total Protein 6.5 g/dL (6.6-8.7)
[2021-04-07] MEDS: pantoprazole DR 40 mg Tablet PO (09:11)
--- NOTE | 2021-04-07 13:32 | P.PN_ITS ---
Subjective Subjective: Interval history: Manuela reports she is doing better. She is less short of breath. Medications: Reviewed: Yes Vitals/I&O/Wt Last Vital Signs Temp 97.6 F 04/07/21 11:43 Pulse 70 04/07/21 11:43 Resp 18 04/07/21 12:56 BP 115/82 04/07/21 11:43 Pulse Ox 93 04/07/21 11:43 04/06/21 04/07/21 04/07/21 22:59 06:59 14:59 Intake Total 520 / 760 420 / 1180 720 / 720 Output Total 400 / 400 Balance 520 / 760 20 / 780 720 / 720 Physical Exam Narrative: EXAM NARRATIVE: General exam appears comfortable on current amount of oxygen at 9 L Neck is supple no lymphadenopathy or thyromegaly Cardiovascular regular rate and rhythm without murmur Lungs a few crackles bilaterally Abdomen is soft with positive bowel sounds Extremities no cyanosis clubbing or edema Data : 04/07/21 06:05 04/07/21 06:05 A&P Assessment and plan (1) Pneumonia due to COVID-19 virus: Severe COVID-19 pneumonia Continue remdesivir, dexamethasone Tocilizumab was given 04/06 Incentive spirometry Empiric Levaquin. Procalcitonin was negative Nebulized treatments, budesonide She appears to be improving. Hopefully if she continues to do so she could be discharged tomorrow. She may require oxygen on discharge. Status: Acute (2) Asthma: No current evidence of exacerbation Status: Acute (3) Essential hypertension: Blood pressure controlled currently Status: Acute Additional A&P Information Thrombocytopenia. Likely secondary to viral illness. Improving Hypokalemia. Supplemented and improved. Full code Lovenox for DVT prophylaxis Attestations Medical Necessity Statement*: Needs continued hospitalization for treatment of COVID-19 pneumonia. Coding Level of Care Code Acute Reimbursement Rep for [facility] Fwd Diagnoses Pneumonia due to COVID-19 virus U07.1; J12.82 Asthma J45.909 Essential hypertension I10
[2021-04-07] MEDS: remdesivir 100 MG in sodium chloride 0.9% (100 ml) 100 ML IV (17:07)
[2021-04-08] VITALS (10 sets, daily range): BP systolic 106–172; BP diastolic 72–84; PULSE 67–94; RESP 16–18; TEMP 36.7–37.1; O2SAT 87–93
[2021-04-08] MEDS: dexamethasone 4 mg/mL INJ 6 MG IVP (01:19)
[2021-04-08] MEDS: ipratropium-albuterol 3 mL Neb INHALATION ×3 (03:26→11:45)
[2021-04-08] MEDS: enoxaparin 40 mg/0.4 mL Syringe SUBCUT (05:00)
[2021-04-08] MEDS: levoFLOXacin 750 mg Tablet PO (05:00)
[2021-04-08] MEDS: budesonide 0.5 mg/2 mL Neb INHALATION (07:56)
[2021-04-08] MEDS: pantoprazole DR 40 mg Tablet PO (08:49)
--- NOTE | 2021-04-08 10:02 | PM.DCS ---
Discharge Providers Date of Admission: 04/05/21 01:30 Date of Discharge: April 08, 2021 Attending Provider at Admission: Lori Majano MD Attending Provider at Discharge: Wilbert Bell MD Primary Care Provider: Hernandez Aguilar Diagnoses at Discharge Discharge Diagnosis (1) Pneumonia due to COVID-19 virus: Status: Acute (2) Asthma: Status: Acute (3) Essential hypertension: Status: Acute Reason for Visit Reason for Visit: COVID + 03/28/21 Hospital Course Hospital Course Manuela is a 35-year-old white female who presented to the hospital with shortness of breath, and had been diagnosed with COVID-19 earlier. She was admitted to the hospital and placed on dexamethasone, remdesivir, and secondary to the severity of her disease requiring high flow oxygen was given Tocilizumab. She was noted to have thrombocytopenia along with her illness. During the course of her stay she had rather rapid improvement. She was able to be weaned off high flow oxygen. By April 08, she was ambulating around the room with oxygen without any difficulty. She had weaned down to only 3 L of oxygen. She was eager to go home. Arrangements were made for discharge. She will finish up 3 more days of dexamethasone. There was no evidence of bacterial infection. She will not need antibiotics upon discharge. Physical Exam Narrative: EXAM NARRATIVE: General exam no apparent distress Neck is supple no lymphadenopathy or thyromegaly Cardiovascular regular rhythm without murmur Lungs clear Abdomen is soft with positive bowel sounds Extremities no cyanosis clubbing or edema Discharge Data Data Completed and Pending: Completed Studies During Hospitalization Category Date Time Status XR chest 1V devan ble [id number] Stat Exams 04/04/21 23:15 Completed Pending at discharge Category Date Time Status Interleukin 6 (IL -6) Serum Stat Lab 04/05/21 00:45 Received Vitals: Last Vital Signs Temp 98.8 F 04/08/21 08:00 Pulse 75 04/08/21 08:03 Resp 18 04/08/21 08:00 BP 172/84 04/08/21 08:00 Pulse Ox 90 04/08/21 08:00 Discharge Plan Discharge Patient Disposition: Home Condition: Stable Prescriptions: New ipratropium-albuterol 0.5 mg-3 mg(2.5 mg base)/3 mL Solution For Nebulization 3 ml inhalation Q4H.RESPIRATORY Qty: 1 RF: 0 dexamethasone 6 mg tablet 6 mg PO Q24H Qty: 3 RF: 0 Continued cetirizine 10 mg tablet 10 mg PO DAILY RF: 0 potassium gluconate 595 mg (99 mg) Tablet 595 mg PO BEDTIME RF: 0 Elderberry Gummies 1 tab PO DAILY RF: 0 ondansetron HCl [Zofran] 4 mg tablet 4 mg PO Q8H 3 Days Qty: 9 RF: 0 tramadol 50 mg tablet 50 mg PO TID PRN (Reason: pain) Qty: 7 RF: 0 fluticasone propion-salmeterol [Advair Diskus] 250-50 mcg/dose blister with device 1 inh inhalation BID RF: 0 metoprolol ta-hydrochlorothiaz 50-25 mg tablet 1 tab PO QPM RF: 0 montelukast 10 mg tablet 10 mg PO BEDTIME RF: 0 escitalopram oxalate 5 mg tablet 5 mg PO QAM RF: 0 metoprolol tartrate 25 mg tablet 25 mg PO QAM RF: 0 Contrave 8-90 mg tablet extended release 1 tab PO BID RF: 0 Discontinued promethazine 12.5 mg tablet 12.5 mg PO BID PRN (Reason: nausea and vomiting) Qty: 14 RF: 0 dexamethasone 4 mg tablet 4 mg PO DAILY RF: 0 Vitamin C 1 tab PO DAILY RF: 0 Vitamin D3 1 cap PO DAILY RF: 0 zinc 1 tab PO DAILY RF: 0 ibuprofen 800 mg tablet 800 mg PO TID PRN (Reason: Pain) RF: 0 nitrofurantoin monohyd/m-cryst [Macrobid] 100 mg capsule 100 mg PO BID 5 Days Qty: 10 RF: 0 Discharge Orders: Discharge Order (Routine); Ordered 04/08/21 Ordered By: Wilbert Bell Discharge Diet: Regular Discharge Activity: Increase activity as tolerated Patient Instructions: Opioid Safety Activity Restrictions/Additional Instructions: Home oxygen evaluation prior to discharge. Return for any worsening Follow-up with your primary care provider by telehealth next week. Discharge Attestations Time Spent in Discharge Care*: greater than 30 min Quality Metrics Clinical Quality Measures During this hospital stay, did patient experience: None Coding Level of Care Code Acute Chg FW DC note Diagnoses Pneumonia due to COVID-19 virus U07.1; J12.82 Asthma J45.909 Essential hypertension I10
== END 2021-04-08 13:11 | disposition home or self-care (01) | DRG 177 ==
LOC: ER 23:59 → CSU 04-05 02:30 → MEDSURG 04-06 05:47 → MS 2A 04-06 16:01
PROVIDERS: Admitting Provider Student in an Organized Health Care Education/Training Program; Emergency Provider Family Medicine; PCP Nurse Practitioner Family; Visit Provider Internal Medicine
DX: U07.1 COVID-19 (principal); J12.82 Pneumonia due to coronavirus disease 2019; J96.01 Acute respiratory failure with hypoxia; I10 Essential (primary) hypertension; J45.909 Unspecified asthma, uncomplicated; Z87.440 Personal history of urinary (tract) infections; D69.6 Thrombocytopenia, unspecified; E87.6 Hypokalemia
CPT/HCPCS: 36415; 36600; 71045; 80051; 80053; 82330; 82728; 82805; 83520; 83615; 83735; 84145; 85025; 85378; 86140; 94640; 96365; 96372; 96375; 99285; J1100; J1650; J2405; J2550; J3262; J7626

== ENCOUNTER → 2021-04-20 15:07 | Outpatient (BNVA) | payer BC, SELFPAY | PROVIDERS: PCP Nurse Practitioner Family; Visit Provider Obstetrics & Gynecology | DX: N83.291 Other ovarian cyst, right side (principal) | CPT/HCPCS: 76830 ==

== ENCOUNTER → 2021-05-20 10:37 | Outpatient (BNVA) | payer BC, SELFPAY | PROVIDERS: PCP Registered Nurse; Visit Provider Obstetrics & Gynecology | DX: N83.8 Other noninflammatory disorders of ovary, fallopian tube and broad ligament (principal); N85.2 Hypertrophy of uterus; Z20.822 Contact with and (suspected) exposure to COVID-19 | CPT/HCPCS: 87635 ==

== ENCOUNTER 2021-05-25 11:03 | Inpatient (IN) | payer BC, SELFPAY ==
[2021-05-23 13:50] VITALS: BMI 30.7
[2021-05-23 14:26] LABS: Basophils % 0.6 %; Eosinophils # 0.5 10^3/uL (0.0-0.8); Eosinophils % 8.1 %; Hematocrit 40.3 % (37.0-47.0); Hemoglobin 13.7 g/dL (11.5-15.3); Lymphocytes # 2.1 10^3/uL (0.8-4.8); Lymphocytes % 31.7 %; Mean Corpuscular Volume 88.2 fl (81-99); Mean Platelet Volume 12.8 fL (7.4-10.4); Monocytes # 0.5 10^3/uL (0.2-0.9); Monocytes % 7.3 %; Neutrophils # 3.42 10^3/uL (1.8-7.7); Neutrophils % 52.1 %; Nucleated Red Blood Cells % 0 %; Platelet Count 197 10^3/cmm (130-400); Red Blood Count 4.57 10^6/uL (4.1-5.3); Red Cell Distribution Width 12.8 % (12.1-15.1); White Blood Count 6.6 10^3/uL (4.0-10.0)
[2021-05-23 14:31] LABS: OR HCG Qualitative Urine Negative (Negative)
--- NOTE | 2021-05-23 14:39 | P.ANESASSM_ITS ---
Pre-Anesthetic Assessment Pre-Anesthetic Assessment: Height/Weight: Height 1.68 m Weight 86.183 kg Proposed Procedure: Operation Date: 05/25/21 11:25 Proposed Procedures p Total Abdominal Hysterectomy 20511 N83.8 N85.2(Not Applicable) - Florentin Iraheta MD s Salpingo Oophorectomy (Open)(Right) - Florentin Iraheta MD Was Beta Colt taken within 24 hours: Yes Was Clonidine taken within 24 hours: N/A Social: Social History: No alcohol and No tobacco Exam: Pre-Anes Outpt Exam: alert, oriented x 3, clear to auscultation bilaterally and regular rate & rhythm Airway: Submandibular: WNL Cervical ROM: WNL MP: 2 Dentition: Full Pulmonary: Pulmonary: Asthma CV/HEM: CV/HEM: HTN Anesthetic Plan: ASA status: 2 Anesthesia: General Risk of > 500 ml blood loss (7ml/kg in children): No PFSH Anesthesia PFSH: Medical History (Updated 04/28/21 @ 14:39 by Florentin Iraheta MD) Asthma Enlarged uterus Essential hypertension Missed period Family History Mother Anesthesia complication Father Diabetes Grandmother Stroke maternal Denies family history of Colon cancer Ovarian cancer Clotting disorder Heart disease Hyperlipidemia Breast cancer Bleeding disorder Hypertension Uterine cancer Thyroid condition Social History (Updated 05/23/21 @ 08:55 by Michelle Krishnamurthy RN) Smoking and tobacco status: never smoked Alcohol intake: current Alcohol intake frequency: holidays/special occasions only Alcohol type: wine and hard liquor Substance/Drug Use: never Female Reproductive History: Date of last menstrual period: 05/19/21 Data Anesthesia CBC & Chem 7: 05/23/21 13:40 05/23/21 13:40 Other Labs: Laboratory Results - last 48 hr 05/23/21 05/23/21 13:40 13:42 WBC 6.6 RBC 4.57 Hgb 13.7 Hct 40.3 MCV 88.2 MCH 30.0 MCHC 34.0 RDW 12.8 Plt Count 197 MPV 12.8 H Neut % (Auto) 52.1 Lymph % (Auto) 31.7 [place] % (Auto) 7.3 Eos % (Auto) 8.1 Baso % (Auto) 0.6 Neut # (Auto) 3.42 Lymph # (Auto) 2.1 [place] # (Auto) 0.5 Eos # (Auto) 0.5 Baso # (Auto) 0.0 Nucleated RBC % (auto) 0 Nucleated RBCs # 0.0 Urine HCG, Qual Negative Cardiac Studies: No Data to Display
[2021-05-23 14:40] LABS: Alanine Aminotransferase 47 U/L (0-33); Albumin Level 4.2 g/dL (3.5-5.2); Alkaline Phosphatase 57 IU/L (35-105); Anion Gap 14.5 (5-19); Aspartate Amino Transferase 43 U/L (0-32); Blood Urea Nitrogen 6 mg/dL (6-20); Calcium 8.7 mg/dL (8.5-10.5); Carbon Dioxide 26 mmol/L (22-29); Chloride 102 mmol/L (98-107); Globulin 2.7 g/dL (1.3-4.6); Glomerular Filtration Rate 142.1 mL/min (90-130); Glucose 112 mg/dL (65-115); Osmolality Calculated 286 mOsm/kg (285-295); Potassium 3.5 mmol/L (3.5-5.1); Sodium 139 mmol/L (136-145); Total Bilirubin 1.2 mg/dL (0.15-1.2); Total Protein 6.9 g/dL (6.6-8.7)
[2021-05-23 15:11] LABS: Add Urine Microscopic? YES; Bilirubin Urine Neg (Negative); Blood Urine 3+ (Negative); Glucose Urine UA Norm (Normal); Ketones Urine Negative (Negative); Leukocyte Esterase Urine Negative (Negative); Nitrate Urine Negative (Negative); Protein Urine Neg (Negative); Urine Appearance Clear (CLEAR); Urine Color Yellow (Yellow); Urobilinogen Urine Norm (Negative); pH Urine 5 (5-7)
[2021-05-23 15:12] LABS: Bacteria Urine 1+ /hpf; RBC Urine 25-40 /hpf (0-2); Squamous Epithelial Cell Urine 0-4 /hpf (0-5); WBC Urine RARE /hpf (0-5)
[2021-05-23 15:13] LABS: Add Urine Culture? Yes; Mucus Urine TRACE /hpf
[2021-05-25] VITALS (21 sets, daily range): BP systolic 100–158; BP diastolic 53–97; PULSE 91–128; RESP 16–30; TEMP 36.3–37.2; O2SAT 91–100; BMI 30.7
[2021-05-25 08:34] LABS: OR HCG Qualitative Urine Negative (Negative)
[2021-05-25] MEDS: scopolamine 1.5 Patch 1 PATCH TRANSDERMA (08:42)
[2021-05-25] MEDS: sodium chloride 0.9% 500 ML IV (08:42)
--- NOTE | 2021-05-25 09:04 | W.PM.OPSUD ---
Surgery/Procedure H&P Update DATE OF PROCEDURE: May 25, 2021 DATE H&P PERFORMED: 05/23/21 H&P UPDATE INFORMATION: I have reviewed H&P completed within last 30 days, I have examined patient prior to procedure and No changes to prior documentation PREOP DIAGNOSIS: Right ovarian mass, menorrhagia, enlarged uterus PLANNED PROCEDURE: Operation Date: 05/25/21 09:25 Proposed Procedures p Total Abdominal Hysterectomy 84045 N83.8 N85.2(Not Applicable) - Florentin Iraheta MD s Salpingo Oophorectomy (Open)(Right) - Florentin Iraheta MD
--- NOTE | 2021-05-25 09:12 | ANES.PAUD2 ---
Pre-Anesthetic Update Pre-Anesthetic Assessment: Date of Surgery/Procedure: 05/25/21 Preop Diagnosis: Right ovarian mass, menorrhagia, enlarged uterus Proposed Procedure: Operation Date: 05/25/21 09:25 Proposed Procedures p Total Abdominal Hysterectomy 53574 N83.8 N85.2(Not Applicable) - Florentin Iraheta MD s Salpingo Oophorectomy (Open)(Right) - Florentin Iraheta MD Any changes to Pre-Anesthetic Assessment?: No Last Intake: Intake Last Liquid Date 05/24/21 Last Liquid Time 23:00 Last Solid Date 05/24/21 Last Solid Time 22:00 Labs Last 48hrs: Laboratory Results - last 48 hr 05/23/21 05/23/21 05/23/21 13:40 13:40 13:40 WBC 6.6 RBC 4.57 Hgb 13.7 Hct 40.3 MCV 88.2 MCH 30.0 MCHC 34.0 RDW 12.8 Plt Count 197 MPV 12.8 H Neut % (Auto) 52.1 Lymph % (Auto) 31.7 [place] % (Auto) 7.3 Eos % (Auto) 8.1 Baso % (Auto) 0.6 Neut # (Auto) 3.42 Lymph # (Auto) 2.1 [place] # (Auto) 0.5 Eos # (Auto) 0.5 Baso # (Auto) 0.0 Nucleated RBC % (a uto) 0 Nucleated RBCs # 0.0 Sodium 139 Potassium 3.5 Chloride 102 Carbon Dioxide 26 Anion Gap 14.5 BUN 6 Creatinine 0.5 GFR Calculation 142.1 H Glucose 112 Calculated Osmolal ity 286 Calcium 8.7 Total Bilirubin 1.2 AST 43 H ALT 47 H Alkaline Phosphata se 57 Total Protein 6.9 Albumin 4.2 Globulin 2.7 Urine Color Urine Appearance Urine pH Ur Specific Gravit y Urine Protein Urine Glucose (UA) Urine Ketones Urine Blood Urine Nitrate Urine Bilirubin Urine Urobilinogen Ur Leukocyte Ruth Ann ase Urine RBC Urine WBC Ur Squamous Epith Cells Amorphous Sediment Urine Bacteria Urine Mucus Urine HCG, Qual Blood Type A Negative Rho(D) Type Negative 05/23/21 05/23/21 05/25/21 13:42 13:42 08:32 WBC RBC Hgb Hct MCV MCH MCHC RDW Plt Count MPV Neut % (Auto) Lymph % (Auto) [place] % (Auto) Eos % (Auto) Baso % (Auto) Neut # (Auto) Lymph # (Auto) [place] # (Auto) Eos # (Auto) Baso # (Auto) Nucleated RBC % (a uto) Nucleated RBCs # Sodium Potassium Chloride Carbon Dioxide Anion Gap BUN Creatinine GFR Calculation Glucose Calculated Osmolal ity Calcium Total Bilirubin AST ALT Alkaline Phosphata se Total Protein Albumin Globulin Urine Color Yellow Urine Appearance Clear Urine pH 5 Ur Specific Gravit y 1.020 Urine Protein Neg Urine Glucose (UA) Norm Urine Ketones Negative Urine Blood 3+ H Urine Nitrate Negative Urine Bilirubin Neg Urine Urobilinogen Norm Ur Leukocyte Ruth Ann ase Negative Urine RBC 25-40 H Urine WBC Rare Ur Squamous Epith Cells 0-4 H Amorphous Sediment Not Reportable Urine Bacteria 1+ H Urine Mucus Trace Urine HCG, Qual Negative Negative Blood Type Rho(D) Type Vitals: Temperature 97.3 F L 05/25/21 08:26 Temperature Source Temporal Artery S can 05/25/21 08:26 Pulse Rate 93 05/25/21 08:26 Respiratory Rate 16 05/25/21 08:26 Blood Pressure 158/94 05/25/21 08:26 Blood Pressure Sheila n 115 05/25/21 08:26 Pulse Oximetry 98 05/25/21 08:26 Oxygen Delivery Me thod 05/25/21 08:26 Exam: Pre-Anes Outpt Exam: alert, oriented x 3, clear to auscultation bilaterally and regular rate & rhythm Cardiac Studies: No Data to Display
[2021-05-25] MEDS: levofloxacin-dextrose 5 % 500 MG/100 ML PREMIX 100 MG IV (09:27)
[2021-05-25] MEDS: vancomycin 1,500 MG/300 ML PIGGYBACK 200 MG IV (09:27)
--- NOTE | 2021-05-25 11:07 | PM.OP ---
Operative Report Date of procedure: May 25, 2021 Pre-op Diagnosis: Right ovarian mass, menorrhagia, enlarged uterus Post-op Diagnosis: Right hydrosalpinx, enlarged uterus, menorrhagia Post-op Findings: Large hydrosalpinx on the right fallopian tube Procedure Done: Total abdominal hysterectomy with right salpingectomy Specimens removed/disposition: Uterus and right fallopian tube Surgeon: Florentin Iraheta MD Anesthesia: General Estimated blood loss (mL): 200 IV fluids (mL): 1,000 Urine output (mL): 300 Complications: Bleeding Condition: stable Disposition: PACU Procedure: The patient was taken to the operating room, and after adequate level of general anesthesia was achieved, the patient was placed in the Trendelenburg position, prepped and draped in the usual sterile fashion. Subsequently, a Pfannenstiel incision was made and the incision was taken down to the fascia. The fascia was opened up sharply. The fascia was extended to the length of the incision using the Saldivar scissors. At this time, the rectus muscles were dissected from the fascia superiorly and inferiorly to the symphysis pubis. The midline rectus muscles were opened sharply and extended superiorly and inferiorly. The peritoneum was visualized, grasped, opened sharply, and extended superiorly and inferiorly towards the bladder. The abdominal contents were packed superiorly away from the operative site using the lap packs. At this time, the pelvic organs were noted showing an enlarge right fallopian tube cyst/hydrosalpinx. The bowel was packed away from the operative site. The fundus of the uterus was then grasped with a triple-tooth tenaculum and retracted out of the pelvic cavity into the abdominal site. At this point, Chayo clamps were placed in both right and left adnexal regions. The right hydrosalpink was grasp and with the ENSEAL X1 Large Jaw Tissue Sealer was clamped, sealed, cut and excised. Subsequently, using the ENSEAL X1 Large Jaw Tissue Sealer device, the round ligaments were grasped, cauterized, and dissected. The bladder flap was then formed and the bladder flap was pushed away down anteriorly over the lower uterine segment, pushed away from the operative site on both the right and left sides. Subsequently, the posterior leaf of the broad ligament was opened sharply and the LigaSure instrument was then placed below the level of the ovary in both the right and left side, care being taken not to damage bowel or uterus and the infundibulopelvic ligament was then grasped, cauterized, and again dissected. Further dissection of the broad ligament was carried down posteriorly towards the uterine vessels. The bladder was pushed inferiorly down towards the vagina. Subsequently, the uterine vessels were then grasped again with the LigaSure machine, cauterized, and dissected. The cardinal ligaments were further grasped, dissected, and suture ligated, again with the LigaSure machine. At that point, the LigaSure machine instrument was stopped and straight Zeppelin clamps were used on the cardinal ligaments down towards the uterosacral ligaments. The cardinal ligaments were grasped, dissected with a scalpel and then ligated with transfixion sutures with #1 Vicryl suture down to the uterosacral ligaments. The uterosacral ligaments were grasped, dissected, and suture ligated again with #1 Vicryl suture and transfixion sutures. At that time, the bladder had been pushed over the vagina and at this time right-angle Zeppelin clamps were placed on the vagina at the level of the cervix, and using the Maikel scissors, the cervix was dissected away from the vagina. At this time, the vaginal cuff was then closed using interrupted sutures of #1 Vicryl suture from the midline to each lateral corner. After the good hemostasis had been achieved in the vaginal cuff, both the right and left adnexa was visualized and no more bleeding was noted. The cuff was intact with no bleeding noted. The bladder was visualized and no bleeding was noted. Seprafilm was then placed over the vaginal cuff. The [place] self-retaining retractor was removed as well as the anterior and inferior blades. The lap packs were removed, and at this time, general closure of the abdomen was carried out. The peritoneum was closed with a 2-0 Vicryl suture and continuous running suture. The fascia was closed using a #1 Vicryl suture from each corner to the midline. Subcutaneous tissue was cauterized. No bleeding was noted. The subcutaneous tissue was then reapproximated using plain sutures and interrupted sutures, and the skin was closed using 4-0 Vicryl suture in a Ernesto needle. The patient tolerated the procedure well and was transferred to the recovery room in excellent condition. The patient returned to the floor for recovery. Lige sure Lige sure
[2021-05-25] MEDS: fentaNYL 50 mcg/mL INJ 2mL IVP ×2 (11:20→11:28)
[2021-05-25] MEDS: HYDROmorphone 1 mg/mL INJ 1 mL 0.5 MG IVP ×2 (11:38→12:00)
[2021-05-25] MEDS: acetaminophen 1,000 MG/100 ML PIGGYBACK 400 MG IV (11:42)
[2021-05-25] MEDS: ketorolac 30 mg/mL INJ IVP ×2 (13:59→18:06)
[2021-05-25] MEDS: dextrose 5%-lactated ringers 1,000 ML 125 ML IV ×2 (14:00→20:27)
--- NOTE | 2021-05-25 14:15 | PC.RESP ---
RT Shift Note Frequent safety and respiratory rounds continue. Orders completed as indicated. Patient monitored pre and post treatments throughout shift. Patient [Did.] tolerate treatments appropriately. Condition [.DidNotChange]. Patient and/or used equipment sales representative educated on respiratory treatment and medications. Patient and/or used equipment sales representative [verbalized understanding. Will continue to monitor patient progress.
--- NOTE | 2021-05-25 14:17 | ANE.PACU2 ---
Inpatient post-anesthesia follow up: Airway intact: Yes Vital signs: Temperature 99 F Pulse Rate 117 Respiratory Rate 16 Blood Pressure 142/97 Pulse Oximetry 96 Oxygen Delivery Me thod Room Air Oxygen Flow Rate 2 Fraction of Inspir ed Oxygen Hydration adequate: Yes Nausea and vomiting: No Pain level: 3 Mental status: Baseline
[2021-05-25] MEDS: HYDROcodone-acetaminophen 5-325 mg Tablet PO (16:14)
[2021-05-25] MEDS: docusate sodium 100 mg Capsule PO (17:14)
[2021-05-25] MEDS: hydroCHLOROthiazide 25 mg Tablet PO (17:15)
[2021-05-25] MEDS: metoprolol tartrate 50 mg Tablet PO (17:15)
--- NOTE | 2021-05-25 18:17 | PC.NURSE ---
Patient sat up in the chair for approximately 1600 to 1800 then ambulated more than 150 ft. Patient tolerated well.
[2021-05-25] MEDS: montelukast sodium 10 mg Tablet PO (20:03)
[2021-05-25] MEDS: HYDROcodone-acetaminophen 5-325 mg Tablet 2 TAB PO (20:03)
[2021-05-26] VITALS (8 sets, daily range): BP systolic 104–132; BP diastolic 58–83; PULSE 80–107; RESP 15–18; TEMP 36.7–37.2; O2SAT 93–97
[2021-05-26] MEDS: ketorolac 30 mg/mL INJ IVP ×3 (00:08→13:00)
[2021-05-26] MEDS: HYDROcodone-acetaminophen 5-325 mg Tablet 2 TAB PO ×3 (00:11→09:14)
[2021-05-26] MEDS: escitalopram 10 mg Tablet 5 MG PO (04:30)
[2021-05-26] MEDS: dextrose 5%-lactated ringers 1,000 ML 125 ML IV ×3 (04:33→20:44)
[2021-05-26] MEDS: docusate sodium 100 mg Capsule PO ×2 (08:15→18:26)
[2021-05-26] MEDS: cholecalciferol (vitamin D3) 1,000 unit Tablet 2000 UNIT PO (08:15)
[2021-05-26] MEDS: zinc gluconate 50 mg Tablet PO (08:15)
[2021-05-26] MEDS: cetirizine 10 mg Tablet PO (08:15)
[2021-05-26] MEDS: ascorbic acid 500 mg Tablet PO (08:15)
--- NOTE | 2021-05-26 09:15 | PC.NURSE ---
Reviewed Tylenol amount of 3275 with Dominguez in Pharmacy and with Suzette VALLADARES. It is okay to give the patient the next dose of Tylenol at this time. Patient verbally agreed as well.
--- NOTE | 2021-05-26 10:01 | PM.PN ---
Subjective Subjective: Interval history: Mrs. Mccrary 35-year-old female status post total abdominal hysterectomy with right salpingectomy postoperative day 1. Refers feeling better than yesterday Vitals/I&O/Wt Last Vital Signs Temp 98.2 F 05/26/21 07:26 Pulse 100 05/26/21 09:50 Resp 16 05/26/21 09:50 BP 115/71 05/26/21 07:26 Pulse Ox 93 05/26/21 09:50 05/25/21 05/26/21 05/26/21 22:59 06:59 14:59 Intake Total 806.25 / 2005.25 1200 / 3206.25 Output Total 2650 / 3850 Balance 806.25 / 806.25 -1450 / -643.75 Weight last 48 hrs Weight 86.183 kg Physical Exam Narrative: EXAM NARRATIVE: GA: Alert and oriented ?3. HEENT: WNL. Heart: Regular rate and rhythm. Lungs: Clear to auscultation bilaterally. Abdomen: Bowel sounds present, nontender, minimal tenderness, incision clean and dry, no redness, pain or edema. FINAL INSPECTOR SHUTTLE: Scant bleeding. Extremities: No edema, no cyanosis, no calves pain. Urinary Catheter Management^: Lopez: Cath Placed During This Visit: yes Urinary Catheter Date of Insertion: 05/25/21 Urinary Catheter Time of Insertion: 09:45 Data : 05/23/21 13:40 05/23/21 13:40 Micro: Microbiology 05/23/21 13:42 Urine Culture - Final Urine,Clean Catch A&P Assessment and plan (1) Status post abdominal hysterectomy: Mrs. Demetra Laughlin-year-old status post abdominal hysterectomy with right salpingectomy postoperative day 1. Initially the surgery planned for suspected 9 cm ovarian mass that turned out to be a 9 cm right fallopian tube cyst. She is afebrile and hemodynamically stable. Tolerating diet well. Passing flatus. Ambulating without difficulty. Urine output adequate. Pain under control with medication. Postop CBC pending. 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
--- NOTE | 2021-05-26 10:15 | PC.CHAP ---
Pastoral Care Encounter/Spiritual Assessment Type of Contact [] Declined email marketing processor visit [] Patient/Family/Request visit [] Outpatient visit [] Follow-up visit [] Physician referral [] Code/Alert [x] Routine visit [] Staff referral [] Actively dying [] Patient sleeping [] Family support [] [] Out of room [] Palliative care [] [x] Receiving care in room [] Pre-surgical visit [] Trauma [] Long length of stay [] ICU visit [] Other: Relational/Emotional Strength [x] Patient feels connected with others/family/visitors/staff [] Distress [] Loneliness/isolation [] Abandonment Spirituality of Patient [x] Person of Soco [] Attends Sikhism of their Soco [x] Believes in Prayer [] Reads Bible or Temple materials [] There are Spiritual issues to be addressed Installer Soft Top Interventions [x] Prayer [x] Active listening [x] Non-anxious presence [x] Spiritual/emotional support [] Crisis/trauma care [x] Spiritual counseling [] Bereavement support [] Provided bereavement packet [] Provided Bible/devotional materials [] Provided toy/stuffed animal, coloring book to patient or family member [] Provided Communion [] Anointing/[place] [] Salvation [x] Completed spiritual assessment [] Other: Impact on Illness or Injury [] Angry [] Fearful [] Anxious [] Often cries [] Exhaustion [] Unable to work [] Unable to attend baptism [] Unable to walk/stand [] Unable to read [] Unable to drive [] Unable to eat/drink [] Unable to sleep [] Unable to be with family [] Patient intubated [] Other: Summary had suergy hyterectomy feels good has a good aqttitude going home today Time spent with patient 10 mins
[2021-05-26 10:33] LABS: Basophils % 0.3 %; Eosinophils % 0.2 %; Hematocrit 33.6 % (37.0-47.0); Hemoglobin 10.9 g/dL (11.5-15.3); Lymphocytes % 19.1 %; Mean Corpuscular HGB Conc 32.4 g/dL (30.0-36.0); Mean Corpuscular Hemoglobin 29.9 pg (28.0-34.0); Mean Corpuscular Volume 92.1 fl (81-99); Mean Platelet Volume 12.3 fL (7.4-10.4); Monocytes # 0.9 10^3/uL (0.2-0.9); Monocytes % 8.5 %; Neutrophils # 7.29 10^3/uL (1.8-7.7); Neutrophils % 71.5 %; Nucleated Red Blood Cells % 0 %; Platelet Count 149 10^3/cmm (130-400); Red Blood Count 3.65 10^6/uL (4.1-5.3); Red Cell Distribution Width 13.3 % (12.1-15.1); White Blood Count 10.2 10^3/uL (4.0-10.0)
[2021-05-26] MEDS: HYDROcodone-acetaminophen 5-325 mg Tablet PO (13:44)
[2021-05-26] MEDS: metoprolol tartrate 50 mg Tablet PO (18:26)
[2021-05-26] MEDS: hydroCHLOROthiazide 25 mg Tablet PO (18:26)
[2021-05-26] MEDS: HYDROcodone-acetaminophen 10-325 mg Tablet 1 TAB PO (18:26)
--- NOTE | 2021-05-26 19:06 | PC.NURSE ---
Report to Viviana Leon at this time.
[2021-05-26] MEDS: montelukast sodium 10 mg Tablet PO (20:44)
[2021-05-27] VITALS (8 sets, daily range): BP systolic 113–126; BP diastolic 68–82; PULSE 75–93; RESP 16–18; TEMP 36.6–37.2; O2SAT 92–96
[2021-05-27] MEDS: dextrose 5%-lactated ringers 1,000 ML 125 ML IV (03:59)
[2021-05-27] MEDS: escitalopram 10 mg Tablet 5 MG PO (05:51)
[2021-05-27] MEDS: HYDROcodone-acetaminophen 10-325 mg Tablet 1 TAB PO ×3 (05:51→17:34)
[2021-05-27 05:54] LABS: Hematocrit 32.3 % (37.0-47.0); Hemoglobin 10.4 g/dL (11.5-15.3); Mean Corpuscular HGB Conc 32.2 g/dL (30.0-36.0); Mean Corpuscular Hemoglobin 30.1 pg (28.0-34.0); Mean Corpuscular Volume 93.4 fl (81-99); Mean Platelet Volume 12.2 fL (7.4-10.4); Platelet Count 121 10^3/cmm (130-400); Red Blood Count 3.46 10^6/uL (4.1-5.3); Red Cell Distribution Width 13.8 % (12.1-15.1); White Blood Count 8.5 10^3/uL (4.0-10.0)
--- NOTE | 2021-05-27 07:14 | PC.NURSE ---
Patient's Lopez Catheter removed at this time. Patient tolerated well. Urine is a clear yellow.
[2021-05-27] MEDS: cetirizine 10 mg Tablet PO (08:43)
[2021-05-27] MEDS: cholecalciferol (vitamin D3) 1,000 unit Tablet 2000 UNIT PO (08:43)
[2021-05-27] MEDS: docusate sodium 100 mg Capsule PO ×2 (08:43→17:34)
[2021-05-27] MEDS: zinc gluconate 50 mg Tablet PO (08:43)
[2021-05-27] MEDS: ascorbic acid 500 mg Tablet PO (08:43)
[2021-05-27] MEDS: ketorolac 30 mg/mL INJ IVP (08:46)
--- NOTE | 2021-05-27 17:32 | P.DS_ITS ---
Discharge Providers VIDEO PHOTOGRAPHER Date of Admission: 05/25/21 11:03 Date of Discharge: 05/27/21 Attending Provider at Admission: Florentin Iraheta MD Attending Provider at Discharge: Florentin Iraheta MD Primary Care Provider: VICKIE Crum Diagnoses at Discharge Discharge Diagnosis (1) Status post abdominal hysterectomy: Status: Acute Reason for Visit Reason for Visit: total abdominal hysterectomy Hospital Course Hospital Course Mrs. Mccrary 35-year-old female with a right ovarian mass measuring 9 cm scheduled for a total abdominal hysterectomy and right oophorectomy. A total abdominal hysterectomy and right salpingectomy was performed without complications. The mass encountered during surgery was a hydrosalpinx. Postop recovery has been uneventful. She is afebrile and hemodynamically stable. Postoperative day 2. Tolerating diet well. Ambulating without difficulty. Passing flatus. Adequate urine output. Pain under control with medication. Physical Exam Narrative: EXAM NARRATIVE: GA: Alert and oriented ?3. HEENT: WNL. Heart: Regular rate and rhythm. Lungs: Clear to auscultation bilaterally. Abdomen: Bowel sounds present, nontender, minimal tenderness, incision clean and dry, no redness, pain or edema. WARP TIER: No bleeding. Extremities: No edema, no cyanosis, no calves pain. Urinary Catheter Management^: Lopez: Cath Placed During This Visit: yes Urinary Catheter Date of Insertion: 05/25/21 Urinary Catheter Time of Insertion: 09:45 Discharge Data Data Completed and Pending: Completed Studies During Hospitalization Category Date Time Status Pathology: Surgic al [PTH] Routine Pth 05/25/21 11:13 Completed Pending at discharge Category Date Time Status Type and Screen R outine Lab 05/23/21 13:40 Results Labs from last 24 hours 05/27/21 05:50 WBC 8.5 RBC 3.46 L Hgb 10.4 L Hct 32.3 L MCV 93.4 MCH 30.1 MCHC 32.2 RDW 13.8 Plt Count 121 L MPV 12.2 H Vitals: Last Vital Signs Temp 97.9 F 05/27/21 15:15 Pulse 78 05/27/21 15:15 Resp 16 05/27/21 15:15 BP 123/79 05/27/21 15:15 Pulse Ox 94 05/27/21 15:15 Discharge Plan Discharge Patient Disposition: Home Condition: Stable Prescriptions: New acetaminophen 325 mg capsule 325 mg PO Q4H PRN (Reason: fever or pain) Qty: 60 RF: 0 hydrocodone-acetaminophen 5-325 mg tablet 1 tab PO Q4H PRN (Reason: pain) Qty: 30 RF: 0 Continued cetirizine 10 mg tablet 10 mg PO DAILY RF: 0 cholecalciferol (vitamin D3) 50 mcg (2,000 unit) capsule 50 mcg PO DAILY RF: 0 ascorbate calcium (vitamin C) 500 mg tablet 500 mg PO DAILY RF: 0 zinc 50 mg tablet 50 mg PO DAILY RF: 0 fluticasone propion-salmeterol [Advair Diskus] 250-50 mcg/dose blister with device See Rx Instructions .ROUTE .COMPLEX Qty: 60 RF: 0 montelukast 10 mg tablet 10 mg PO BEDTIME Qty: 90 RF: 0 potassium gluconate 595 mg (99 mg) Tablet 595 mg PO BEDTIME RF: 0 metoprolol ta-hydrochlorothiaz 50-25 mg tablet 1 tab PO QPM RF: 0 escitalopram oxalate 5 mg tablet 5 mg PO QAM RF: 0 Discharge Orders: Discharge Order (Routine); Ordered 05/27/21 Ordered By: Florentin Iraheta Referrals: Florentin Iraheta MD [Physician] - 2 weeks Discharge Diet: Usual diet Discharge Activity: Increase activity as tolerated Patient Instructions: Abdominal Hysterectomy (DC), Opioid Safety Activity Restrictions/Additional Instructions: 1. Please call [facility] on next working day to make your post-operative appointment in 2 weeks. 2. Please stay home until you come back to the clinic on first post-operative check up. 3. Please follow instructions on your medications CAREFULLY. 4. If you have abdominal incision, do not cover it unless dressing is necessary because of drainage. OK to shower, but avoid bath. Leave steri-strips until they fall off. If they are still on one week after surgery, you may remove them. 5. If you had vaginal surgery or vaginal repair, Dr. Iraheta may instruct you to take SITZ bath. 6. Yellow, blood tinged odorous vaginal discharge is usually normal after hysterectomy or vaginal surgeries. 7. No sexual intercourse, tampons, or douches until you are completely released from the post-operative care. 8. Avoid constipation by eating right and maybe using some Metamucil or Milk of Magnesia. 9. All prescription refills are given during the working hours. Please do no wait till it runs out. Call the clinic at [phone] before your medication runs out. The clinic will get in touch with your doctor to prescribe medications if necessary. 10. Please remain within 40 mile radius from our hospital because emergencies do happen now and then during the post-operative period. 11. If you have stairs at home, take one step at a time slowly and minimize the number of trips. It helps to stay in one floor for the next few days. No lifting except what you can lift by one hand until you are released from the post-operative care. 12. Driving is discouraged until you are well healed. It may be 3-4 weeks before you feel strong enough to drive. You should be able to turn and look through the rear window without pain and you should be able to push the brake pedal very hard without pain before you drive. No fast rules, but SAFETY should be your primary concern. DO NOT drive if you are on sedating medications such as narcotics. 13. Call the clinic (during working hours) to make urgent appointment or go to the Emergency room, if any of the following occurs: i. Vaginal bleeding becomes heavy, more than a period. ii. Incision becomes red and sore, or drains pus. iii. Your temperature is over 100.4 or you have chill. iv. IV site becomes red and swollen (a little ``knot?? is usually OK) v. Persistent nausea and vomiting vi. Persistent constipation or diarrhea vii. Rash or allergic reaction to medications.. Discharge Attestations VIDEO PHOTOGRAPHER Time Spent in Discharge Care*: greater than 30 min Coding Level of Care Code Acute Named Account Executive for Ramos Gallegos Diagnoses Status post abdominal hysterectomy Z90.710
[2021-05-27] MEDS: hydroCHLOROthiazide 25 mg Tablet PO (17:34)
[2021-05-27] MEDS: metoprolol tartrate 50 mg Tablet PO (17:34)
--- NOTE | 2021-05-27 18:21 | PC.NURSE ---
Patient's IV removed at this time. Patient tolerated well. Patient is A&Ox3. Respirations even and non-labored on room air. Reviewed discharge instructions with patient and at this time. Patient verbalized understanding of the need to call and make a follow up appointment. Patient verbalized understanding of how to take her pain medications. Patient ambulated to private car.
--- NOTE | 2021-05-30 14:01 | PC.SOCIAL ---
discharge follow up call made, spoke with patient. patient reports some pain but nothing that the hydrocodone isn't relieving. patient has follow up appointment with dr. hodge for 10-4. patient requested pathology report, read final report to patient. also let her know that dr. hodge would go over that, that i couldn't give her anymore details due to going outside scope of practice. patient denies any further questions or concerns.
== END 2021-05-27 18:15 | disposition home or self-care (01) | DRG 743 ==
LOC: MEDSURG 14:41
PROVIDERS: Anesthesiology; Admitting Provider Obstetrics & Gynecology; PCP Registered Nurse; Visit Provider Obstetrics & Gynecology
PROC: 0UT90ZZ Resection of Uterus, Open Approach (ICD-10-PCS; CPT 58150; principal; 2021-05-25 09:15)
PROC: 0UT90ZZ Resection of Uterus, Open Approach (ICD-10-PCS; CPT 58720; 2021-05-25 09:15)
DX: N70.11 Chronic salpingitis (principal); N83.291 Other ovarian cyst, right side; N85.2 Hypertrophy of uterus; N92.0 Excessive and frequent menstruation with regular cycle; J45.909 Unspecified asthma, uncomplicated; I10 Essential (primary) hypertension; Z83.3 Family history of diabetes mellitus; Z82.3 Family history of stroke; Z88.0 Allergy status to penicillin
CPT/HCPCS: 36415; 51702; 80053; 81001; 81025; 84703; 85025; 85027; 86850; 86900; 87086; 88307; 94640; 96365; C9290; J1100; J1170; J1200; J1885; J1956; J2250; J2405; J2704; J2710; J3010; J3370; J3490; J3535; J7040; Q9968

== ENCOUNTER 2021-06-13 12:02 | Outpatient (CLI) | payer BC, SELFPAY ==
--- NOTE | 2021-06-13 12:00 | CT_ITS ---
WS: [id number] CT ABDOMEN AND PELVIS NONCONTRAST HISTORY: N20.0 - Calculus of kidney TECHNIQUE: Imaging performed through the abdomen and pelvis. Coronal and sagittal reformats are submi tted. All CT scans at [facility] use at least one of these dose optimization techniques: auto mated exposure control; mA and/or kV adjustment per patient size (includes targeted exams where dose is matched to clinical indication); or iterative reconstruction. DLP: 1640.07 mGy.cm COMPARISON: 04/04/2021 and prior ultrasound 04/20/2021 Lower thorax: Lung bases are clear. Visualized heart is normal. Small hiatal hernia. Liver: Moderate diffuse hepatic steatosis and hepatomegaly. No bile duct dilatation. Gallbladder: Prior cholecystectomy. Pancreas: Normal size and attenuation. Normal pancreatic duct. No pancreatitis or mass. Spleen: Normal. Adrenal glands: Normal. No mass. Right kidney: Normal size kidney with no mass or hydronephrosis. Left kidney: Normal size kidney with no obstruction. Nonobstructing 3 mm calcification in the mid kid cee. Aorta: Normal abdominal aorta, no aneurysm or atherosclerosis. No free fluid, intraperitoneal air or significant lymphadenopathy. GI tract: Normal appendix. No GI tract obstruction or diverticulosis. Abdominal wall: Small umbilical hernia contains fat only. Pelvis: In the central pelvis is a fluid collection with air in the expected location of the uterus. This is an ill-defined collection measuring 3.7 x 3.5 cm. Consistent with a pelvic abscess. Within ea ch adnexa low-attenuation masses are identified. The RIGHT measures 3.8 x 2.8 cm the LEFT collection measures 2.6 x 3.6 cm and these are probably ovarian cysts. The inflammation in the pelvis does exten d to involve the distal sigmoid towards the rectum. Osseous structures: No osteoblastic or osteolytic disease. There are a few scattered bone islands wit hin the pelvis. CT/CT kidney stone 29070 IMPRESSION: 1. Pelvic abscess measuring 3.7 x 3.5 cm in the uterine bed. Recent hysterecto my as per history. 2. Bilateral adnexal low-attenuation masses are probably ovarian cysts. 3. No renal obstruction or hydronephrosis. Nonobstructing 3 mm LEFT renal calc ification. 4. Prior cholecystectomy. 5. Moderate hepatic steatosis and hepatomegaly.
== END 2021-06-13 12:03 | disposition home or self-care (01) ==
LOC: RAD 12:05
PROVIDERS: PCP Registered Nurse; Visit Provider Registered Nurse
DX: N20.0 Calculus of kidney (principal); N73.9 Female pelvic inflammatory disease, unspecified; Z90.710 Acquired absence of both cervix and uterus; Z90.49 Acquired absence of other specified parts of digestive tract; K76.0 Fatty (change of) liver, not elsewhere classified; R16.0 Hepatomegaly, not elsewhere classified; N39.0 Urinary tract infection, site not specified; A49.9 Bacterial infection, unspecified
CPT/HCPCS: 74176; 81000; 87086

== ENCOUNTER → 2021-06-20 12:30 | Outpatient (BNVA) | payer BC, SELFPAY | PROVIDERS: PCP Registered Nurse; Visit Provider Obstetrics & Gynecology | DX: N73.0 Acute parametritis and pelvic cellulitis (principal) | CPT/HCPCS: 83001; 85025 ==

== ENCOUNTER → 2021-06-28 15:52 | Outpatient (BNVA) | payer BC, SELFPAY | PROVIDERS: PCP Registered Nurse; Visit Provider Obstetrics & Gynecology | DX: N73.9 Female pelvic inflammatory disease, unspecified (principal); N83.202 Unspecified ovarian cyst, left side; N83.201 Unspecified ovarian cyst, right side | CPT/HCPCS: 76830 ==

== ENCOUNTER → 2021-07-04 11:48 | Outpatient (BNVA) | payer BC, SELFPAY | PROVIDERS: PCP Registered Nurse; Visit Provider Registered Nurse | DX: E03.9 Hypothyroidism, unspecified (principal); L65.9 Nonscarring hair loss, unspecified | CPT/HCPCS: 82728; 83540; 84403; 84443 ==

== ENCOUNTER → 2021-07-18 15:08 | Outpatient (BNVA) | payer BC, SELFPAY | PROVIDERS: PCP Registered Nurse; Visit Provider Obstetrics & Gynecology | DX: N83.202 Unspecified ovarian cyst, left side (principal); N83.201 Unspecified ovarian cyst, right side | CPT/HCPCS: 76830 ==

== ENCOUNTER → 2022-07-07 11:04 | Outpatient (BNVA) | payer BC, SELFPAY | PROVIDERS: PCP Registered Nurse; Visit Provider Registered Nurse | DX: E53.8 Deficiency of other specified B group vitamins (principal); I10 Essential (primary) hypertension; J45.40 Moderate persistent asthma, uncomplicated; R73.03 Prediabetes; E66.9 Obesity, unspecified | CPT/HCPCS: 80053; 85025 ==

== ENCOUNTER → 2022-08-08 15:41 | Outpatient (BNVA) | payer BC, SELFPAY | PROVIDERS: PCP Registered Nurse; Visit Provider Obstetrics & Gynecology | DX: R10.2 Pelvic and perineal pain (principal) | CPT/HCPCS: 76830 ==

== ENCOUNTER → 2022-11-22 10:47 | Outpatient (BNVA) | payer BC, SELFPAY | PROVIDERS: PCP Registered Nurse; Visit Provider Registered Nurse | DX: I10 Essential (primary) hypertension (principal) | CPT/HCPCS: 80053; 85025 ==

== ENCOUNTER → 2022-12-11 11:34 | Outpatient (BNVA) | payer BC, SELFPAY | PROVIDERS: PCP Registered Nurse; Visit Provider Registered Nurse | DX: R74.8 Abnormal levels of other serum enzymes (principal) | CPT/HCPCS: 80053 ==

== ENCOUNTER → 2023-03-05 11:31 | Outpatient (BNVA) | payer BC, SELFPAY | PROVIDERS: PCP Registered Nurse; Visit Provider Registered Nurse | DX: E53.8 Deficiency of other specified B group vitamins (principal); E66.9 Obesity, unspecified; Z68.22 Body mass index [BMI] 22.0-22.9, adult | CPT/HCPCS: 80053 ==